=== PATIENT | male | born 1980 | race African-American/Black ===

== ENCOUNTER 2025-07-23 18:55 | Emergency (ER) | payer MEDICARE, SELFPAY ==
[2025-07-23 19:09] VITALS: BP 135/78; PULSE 84; RESP 16; TEMP 36.6; O2SAT 99
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
== END 2025-07-23 19:30 | disposition short-term general hospital (02) ==
DX: H53.8 Other visual disturbances (principal); M54.2 Cervicalgia; R52 Pain, unspecified; R51.9 Headache, unspecified; V43.02XA Car driver injured in collision with other type car in nontraffic accident, initial encounter; Z87.820 Personal history of traumatic brain injury
CPT/HCPCS: 99213; G0463; L0140

== ENCOUNTER 2025-07-23 20:15 | Emergency (ER) | payer OTHER, MEDICARE, SELFPAY ==
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
--- NOTE | ~2025-07-23 | US_ITS ---
EXAMINATION: US scrotum doppler DATE: 07/24/2025 02:42 INDICATION: Right testicular pain and swelling. TECHNIQUE: Grayscale and Doppler ultrasound images of the testes were obtained. COMPARISON: None. FINDINGS: The right testis measures 4.0 x 2.6 x 2.5 cm. The left testis measures 3.6 x 2.3 x 2.9 cm. There is a 6 mm cyst in the right testis. There is normal vascular flow to both testes. The right epididymis is normal with normal vascular flow. The left epididymis is normal with normal vascular flow. There are large right and small left hydroceles. There are bilateral varicoceles. IMPRESSION: 1. Large right and small left hydroceles. 2. Bilateral varicoceles. Reviewed, dictated and finalized at location E.
[2025-07-23 20:26] VITALS: BP 135/73; PULSE 62; RESP 18; TEMP 36.2; O2SAT 99
[2025-07-24 00:13] VITALS: BP 131/88; PULSE 60; RESP 18; O2SAT 99
[2025-07-24] MEDS: KETOROLAC 30 MG/ML VIAL (*BKC) IM (02:24)
[2025-07-24] MEDS: ACETAMINOPHEN 500 MG TABLET 1000 MG PO (02:24)
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
[2025-07-24 03:23] VITALS: BP 129/71; PULSE 57; RESP 18; O2SAT 100
[2025-07-24 03:32] VITALS: BP 129/75; O2SAT 100
[2025-07-24 04:31] VITALS: BP 132/85; O2SAT 100
[2025-07-24 06:32] VITALS: BP 134/84; PULSE 84; RESP 14; O2SAT 100
== END 2025-07-24 06:34 | disposition home or self-care (01) ==
PROVIDERS: Emergency Provider Emergency Medicine
DX: T14.8XXA Other injury of unspecified body region, initial encounter (principal); H53.8 Other visual disturbances; I86.1 Scrotal varices; N50.811 Right testicular pain; V43.02XA Car driver injured in collision with other type car in nontraffic accident, initial encounter
CPT/HCPCS: 70450; 71046; 72125; 73030; 73130; 73502; 76870; 93976; 96372; 99284; A9270; J1885